=== PATIENT | female | born 1960 | race Caucasian/White ===

== ENCOUNTER 2021-07-01 11:36 | Emergency (ER) | payer OTHER ==
[2021-07-01] MEDS ORDERED: HYDROCODON-ACE1 EAC2 PO (14:18)
[2021-07-04] MEDS ORDERED: NEURONTIN 100100 MG PO (11:23)
[2021-07-04] MEDS ORDERED: IBU800 MG PO (11:24)
[2021-07-04] MEDS ORDERED: HYDROXYZINE HCL25 MG PO (11:24)
[2021-07-04] MEDS ORDERED: ULTRAM50 MG PO (11:25)
[2021-07-04] MEDS ORDERED: VITAMIN B12 PO (11:25)
[2021-07-04] MEDS ORDERED: VITAMIN E180 M1 PO (11:26)
[2021-07-04] MEDS ORDERED: VITAMIN C500 M4 PO (11:26)
[2021-07-04] MEDS ORDERED: VITAMIN D325 MC6 PO (11:27)
[2021-07-04] MEDS ORDERED: DAILY VITAMIN1 EAC2 PO (11:28)
[2021-07-04] MEDS ORDERED: [UNRECOGNIZED DRUG - OTHER] PO (11:28)
== END 2021-07-01 14:35 | disposition home or self-care (01) ==
LOC: ER1 11:36
DX: S52.572A Other intraarticular fracture of lower end of left radius, initial encounter for closed fracture (principal); S52.615A Nondisplaced fracture of left ulna styloid process, initial encounter for closed fracture; Z79.899 Other long term (current) drug therapy; W01.0XXA Fall on same level from slipping, tripping and stumbling without subsequent striking against object, initial encounter; Y92.89 Other specified places as the place of occurrence of the external cause
CPT/HCPCS: 29125; 73080; 73090; 73130; 99283

== ENCOUNTER → 2021-07-06 | Day surgery (SDC) | payer MEDICARE ==
[~2021-07-06] VITALS: Ht 157.5 cm; Wt 64.9 kg
[~2021-07-06] MED LIST: DAILY VITAMIN1 EAC2 PO; HYDROCODON-ACE1 EAC2 PO; HYDROXYZINE HCL25 MG PO; IBU800 MG PO; LORTAB PO; NEURONTIN 100100 MG PO; ULTRAM50 MG PO; VITAMIN B12 PO; VITAMIN C500 M4 PO; VITAMIN D325 MC6 PO; VITAMIN E180 M1 PO; [UNRECOGNIZED DRUG - OTHER] PO
[2021-07-06 06:50] LABS: HEMOGLOBIN 12.4 gm/dl (12.3-15.3); RED BLOOD COUNT 4.33 M/UL (4.00-5.10); WHITE BLOOD COUNT 5.2 K/UL (4.5-11.0)
[2021-07-06 06:51] LABS: BUN/CREATININE RATIO 16 (0-10)
== END | disposition home or self-care (01) ==
LOC: OR 05:55
PROVIDERS: Orthopaedic Surgery
PROC: 3E0T3BZ Introduction of Anesthetic Agent into Peripheral Nerves and Plexi, Percutaneous Approach (ICD-10-PCS; 2021-07-06)
PROC: 0PSJ04Z Reposition Left Radius with Internal Fixation Device, Open Approach (ICD-10-PCS; principal; 2021-07-06 08:00)
DX: S52.572A Other intraarticular fracture of lower end of left radius, initial encounter for closed fracture (principal); E04.1 Nontoxic single thyroid nodule; M81.0 Age-related osteoporosis without current pathological fracture; M48.00 Spinal stenosis, site unspecified; M51.26 Other intervertebral disc displacement, lumbar region; Z20.822 Contact with and (suspected) exposure to COVID-19; Z79.1 Long term (current) use of non-steroidal anti-inflammatories (NSAID); Z79.899 Other long term (current) drug therapy; W01.0XXA Fall on same level from slipping, tripping and stumbling without subsequent striking against object, initial encounter
CPT/HCPCS: 36415; 73100; 76000; 80048; 85027; J0592; J0690; J1100; J2001; J2250; J2550; J2704; J2795; J7120